=== PATIENT | male | born 1970 | race Two or more races ===

== ENCOUNTER 2017-11-12 03:56 | Inpatient (IN) | payer MEDICARE, OTHER ==
--- NOTE | 2017-11-12 05:25 | HP ---
COWS - Scale Resting Pulse: 0= [place] 80 or Below Sweatin=Flushed/Facial Moisture Restless Observation: 1= Difficult to Sit Still Pupil Size: 1= Pupils >than Normal Bone or Joint Aches: 2= Severe Diffuse Aches Runny Nose/ Eye Tearin= Runny Nose/Eyes GI Upset > 30mins: 3= Vomiting/Diarrhea (DIARRHEA X 2, VOMITING X 2) Tremor Observation: 2= Slight Tremor Visible Yawning Observation: 0= None Anxiety or Irritability: 2=Irritable/Anxious Goose Flesh Skin: 3=Piloerection COWS Score: 18 CIWA Score - CIWA Score Nausea/Vomitin (VOMITING X 2) Muscle Tremors: 4-Moderate,w/Arms Extend Anxiety: 3 Agitation: 3 Paroxysmal Sweats: 2 Orientation: 0-Oriented Tacttile Disturbances: 0-None Auditory Disturbances: 0-None Visual Disturbances: 0-None Headache: 0-None Present CIWA-Ar Total Score: 15 Admission ROS S - HPI Chief Complaint: Alcohol and opioid withdrawal symptoms Allergies/Adverse Reactions: Allergies Allergy/AdvReac Type Severity Reaction Status Date / Time acetaminophen [From Tylenol] Allergy Severe Difficulty Verified 11/12/17 05:24 Breathing History of Present Illness: 47 years old male with a long history of opoid and alcohol dependence is admitted to detox. Patient has been in previous detox and denies significant period of abstinence. He has medical history of asthma and DM. Denies suicidal ideation at this time. Exam Limitations: No Limitations - Ebola screening Have you traveled outside of the country in the last 21 days: No Have you had contact with anyone from an Ebola affected area: No Have you been sick,other than usual withdrawal symptoms: No Do you have a fever: No - Review of Systems Constitutional: Chills, Loss of Appetite, Night Sweats, Changes in sleep EENT: reports: No Symptoms Reported (yellow phlegm) Respiratory: reports: Cough Cardiac: reports: No Symptoms Reported GI: reports: Diarrhea, Nausea, Poor Appetite, Poor Fluid Intake, Vomiting, Abdominal cramping : reports: No Symptoms Reported Musculoskeletal: reports: Back Pain, Muscle Pain, Muscle Weakness Integumentary: reports: Flushing Neuro: reports: Tremors Endocrine: reports: No Symptoms Reported Hematology: reports: No Symptoms Reported Psychiatric: reports: Agitated, Anxious, Depressed Other Systems: Reviewed and Negative Patient History - Patient Medical History Hx Anemia: No Hx Asthma: Yes Hx Chronic Obstructive Pulmonary Disease (COPD): No Hx Cancer: No Hx Cardiac Disorders: No Hx Congestive Heart Failure: No Hx Hypertension: No Hx Hypercholesterolemia: No HX Cerebrovascular Accident: No Hx Seizures: No Hx Dementia: No Hx Diabetes: Yes Hx Gastrointestinal Disorders: No Hx Liver Disease: No Hx Genitourinary Disorders: No Hx Sexually Transmitted Disorders: No Hx Renal Disease (ESRD): No Hx Thyroid Disease: No Hx Human Immunodeficiency Virus (HIV): No (Negative 2017) Hx Hepatitis C: No (Negative 2017) Hx Depression: No Hx Suicide Attempt: No (Denies suicidal ideation) Hx Bipolar Disorder: No Hx Schizophrenia: No - Patient Surgical History Past Surgical History: No - PPD History Previous Implant?: Yes Documented Results: Negative w/o proof Implanted On Prior [facility] Admission?: No PPD to be Administered?: Yes - Reproductive History Patient is a Female of Child Bearing Age (11 -55 yrs old): No (MALE) - Smoking Cessation Smoking history: Current every day smoker Have you smoked in the past 12 months: Yes Aproximately how many cigarettes per day: 20 Hx Chewing Tobacco Use: No Initiated information on smoking cessation: Yes 'Breaking Loose' booklet given: 11/12/17 - Substance & Tx. History Hx Alcohol Use: Yes Hx Substance Use: Yes Substance Use Type: Alcohol, Cocaine, Heroin, Marijuana Hx Substance Use Treatment: Yes ([facility]) - Substances Abused Alcohol Route: Oral Frequency: Daily Amount used: BEER- 2x (40 OZ), LIQUOR 2 PINTS Age of first use: 36 Date of Last Use: 11/11/17 Heroin Route: Inhalation Frequency: Daily Amount used: 13 BAGS Age of first use: 20 Date of Last Use: 11/11/17 Cocaine Route: Smoking Frequency: Daily Amount used: 4 GRAMS Age of first use: 31 Date of Last Use: 11/11/17 Family Disease History - Family Disease History Family History: Denies Admission Physical Exam S - Physical General Appearance: Yes: Moderate Distress HEENTM: Yes: EOMI, Normal ENT Inspection, JESUS Respiratory: Yes: Lungs Clear, Normal Breath Sounds, No Respiratory Distress Neck: Yes: Supple Breast: Yes: Breast Exam Deferred Cardiology: Yes: Regular Rhythm, Regular Rate, S1, S2 Abdominal: Yes: Normal Bowel Sounds, Soft Genitourinary: Yes: Within Normal Limits Back: Yes: Normal Inspection Musculoskeletal: Yes: Back pain, Muscle Pain, Muscle weakness Extremities: Yes: Tremors Neurological: Yes: Alert, Normal Mood/Affect, Normal Response Integumentary: Yes: Dry Lymphatic: Yes: Within Normal Limits. No: Adenopathy, Tenderness, Other - Diagnostic (1) Alcohol dependence with uncomplicated withdrawal Current Visit: Yes Status: Chronic (2) Cocaine dependence, uncomplicated Current Visit: Yes Status: Acute (3) Diabetes Current Visit: Yes Status: Chronic Qualifiers: Diabetes mellitus type: type 2 (4) Asthma Current Visit: Yes Status: Chronic (5) Opioid dependence with withdrawal Current Visit: Yes Status: Chronic Cleared for Admission S - Detox or Rehab [facility] Level of Care: Medically Managed Detox Regimen/Protocol: Methadone/Librium S Breath Alcohol Content Breath Alcohol Content: 0
[2017-11-12] MEDS ORDERED: MAGNESIUM CITRATE 300 ML BOTTLE PO PRN (05:37)
[2017-11-12] MEDS ORDERED: NICOTINE POLACRILEX 2 MG GUM BC PRN (05:37)
[2017-11-12] MEDS ORDERED: METHADONE HCL 10 MG TABLET (FOR DETOX USE ONLY) PO ONE ×3 (05:37→23:00)
[2017-11-12] MEDS ORDERED: guaiFENesin/D-METHORPHAN HB 10 ML UNIT-DOSE CUPS PO PRN (05:37)
[2017-11-12] MEDS ORDERED: MAGNESIUM HYDROX 2400MG/30ML ORAL SUSPENSION 30 ML CUP PO PRN (05:37)
[2017-11-12] MEDS ORDERED: chlordiazePOXIDE HCL 25 MG CAPSULE PO PRN (05:37)
[2017-11-12] MEDS ORDERED: LOPERAMIDE HCL 2 MG CAPSULE PO PRN (05:37)
[2017-11-12] MEDS ORDERED: MENTHOL/PHENOL 1 EACH UD MM PRN (05:37)
[2017-11-12] MEDS ORDERED: MAG HYDROX/AL HYDROX/SIMETH 30 ML UNIT-DOSE CUP PO PRN (05:37)
[2017-11-12] MEDS ORDERED: P-EPHED 60MG/TRIPROLIDI 2.5MG TABLET PO PRN (05:37)
[2017-11-12 09:47] LABS: HEMATOCRIT 41.5 % (35.4-49); HEMOGLOBIN 13.6 GM/dL (11.7-16.9); MCH 32.4 pg (25.7-33.7); MCHC 32.7 g/dl (32.0-35.9); MEAN CELL VOLUME 99.3 fl (80-96); MEAN PLT VOLUME 9.5 fl (7.5-11.1); PLATELET COUNT 194 K/MM3 (134-434); RBC 4.18 M/mm3 (4.00-5.60); RDW 13.1 % (11.9-15.9); WHITE BLOOD COUNT 7.2 K/mm3 (4.0-10.0)
[2017-11-12 10:08] LABS: BLOOD UREA NITROGEN 16 mg/dL (7-18); CALCIUM 9.5 mg/dL (8.5-10.1); CHLORIDE 99 mmol/L (98-107); GLUCOSE,RANDOM 107 mg/dL (74-106); POTASSIUM 3.8 mmol/L (3.5-5.1); SODIUM 137 mmol/L (136-145)
[2017-11-12 10:11] LABS: ALK PHOS 74 U/L (45-117); ANION GAP 8 (8-16); BILIRUBIN,TOTAL 0.8 mg/dL (0.2-1.0); CO2 30 mmol/L (21-32); CREATININE 0.8 mg/dL (0.7-1.3); SGOT/AST 25 U/L (15-37); SGPT/ALT 27 U/L (12-78); TOT PROT 7.5 g/dl (6.4-8.2)
[2017-11-12] MEDS: PRENATAL VITAMINS W/ FOLIC ACID TABLET (FP) PO SCH (10:38)
[2017-11-12] MEDS: chlordiazePOXIDE HCL 25 MG CAPSULE PO SCH ×3 (10:38→22:20)
[2017-11-12] MEDS: NICOTINE 14 MG/24 HOURS TOPICAL PATCH TD SCH (10:39)
--- NOTE | 2017-11-12 12:38 | PN ---
[facility] CIWA - CIWA Score Nausea/Vomitin-No Nausea/No Vomiting Muscle Tremors: 3 Anxiety: 4-Mod. Anxious/Guarded Agitation: 3 Paroxysmal Sweats: 3 Orientation: 0-Oriented Tacttile Disturbances: 2-Mild Itch/Numbness/Burn Auditory Disturbances: 0-None Visual Disturbances: 3-Moderate Sensitivity Headache: 0-None Present CIWA-Ar Total Score: 18 BHS COWS - Scale Resting Pulse: 0= [place] 80 or Below Sweatin= Chills/Flushing Restless Observation: 1= Difficult to Sit Still Pupil Size: 0= Normal to Room Light Bone or Joint Aches: 2= Severe Diffuse Aches Runny Nose/ Eye Tearin= None GI Upset > 30mins: 0= None Tremor Observation of Outstretched Hands: 2= Slight Tremor Visible Yawning Observation: 2= >3x During Session Anxiety or Irritability: 2=Irritable/Anxious Goose Flesh Skin: 3=Piloerection COWS Score: 13 BHS Progress Note (SOAP) Subjective: Fatigue, Sweating, Interrupted Sleep, Anxious, Tremors. Objective: PT. A & O X 3. NO ACUTE DISTRESS. 11/12/17 12:37 Vital Signs Temperature 96.9 F L 11/12/17 09:07 Pulse Rate 75 11/12/17 09:07 Respiratory Rate 18 11/12/17 09:07 Blood Pressure 109/58 11/12/17 09:07 O2 Sat by Pulse Oximetry (%) Laboratory Tests 11/12/17 11/12/17 11/12/17 07:30 07:30 07:30 WBC 7.2 RBC 4.18 Hgb 13.6 Hct 41.5 MCV 99.3 H MCH 32.4 MCHC 32.7 RDW 13.1 Plt Count 194 MPV 9.5 Sodium 137 Potassium 3.8 Chloride 99 Carbon Dioxide 30 Anion Gap 8 BUN 16 Creatinine 0.8 Creat Clearance w eGFR > 60 Random Glucose 107 H Calcium 9.5 Total Bilirubin 0.8 AST 25 ALT 27 Alkaline Phosphatase 74 Total Protein 7.5 Albumin 4.0 RPR Titer Nonreactive LABS NOTED. UA RESULTS PENDING. 11/12/17 12:38 Assessment: 11/12/17 12:37 WITHDRAWAL SYMPTOMS. Plan: CONTINUE DETOX.
--- NOTE | 2017-11-12 13:27 | EKG ---
Test Reason : Blood Pressure : / mmHG Vent. Rate : 068 BPM Atrial Rate : 068 BPM P-R Int : 144 ms QRS Dur : 088 ms QT Int : 370 ms P-R-T Axes : 063 088 038 degrees QTc Int : 393 ms NORMAL SINUS RHYTHM NORMAL ECG NO PREVIOUS ECGS AVAILABLE Confirmed by GRICEL WYLIE MD ([id number]) on 11/12/2017 1:27:40 PM Referred By: Confirmed By:GRICEL WYLIE MD
[2017-11-12 14:41] LABS: SICKLE CELL SCREEN NEGATIVE (NEGATIVE)
[2017-11-12 19:02] LABS: URINE APPEARANCE CLEAR; URINE BILIRUBIN NEGATIVE (NEGATIVE); URINE BLOOD NEGATIVE (NEGATIVE); URINE COLOR DKYELLOW; URINE GLUCOSE (UA) NEGATIVE (NEGATIVE); URINE KETONE NEGATIVE (NEGATIVE); URINE LEUK ESTERASE TRACE (NEGATIVE); URINE NITRITE NEGATIVE (NEGATIVE); URINE PROTEIN NEGATIVE (NEGATIVE); URINE UROBILINOGEN 4.0 E.U/dl mg/dL (0.2-1.0)
[2017-11-12 20:29] LABS: EPI CELLS RARE /HPF (FEW); URINE MUCUS RARE
[2017-11-12] MEDS: THIAMINE HCL 100 MG TABLET (FP) PO SCH (22:20)
[2017-11-13] MEDS: chlordiazePOXIDE HCL 25 MG CAPSULE PO SCH ×4 (05:48→22:08)
[2017-11-13 05:55] VITALS: BMI 27.3
[2017-11-13] MEDS ORDERED: METHADONE HCL 10 MG TABLET (FOR DETOX USE ONLY) PO SCH (10:00)
[2017-11-13] MEDS: PRENATAL VITAMINS W/ FOLIC ACID TABLET (FP) PO SCH (10:27)
[2017-11-13] MEDS: NICOTINE 14 MG/24 HOURS TOPICAL PATCH TD SCH (10:27)
[2017-11-13] MEDS: BACITRACIN 0.9 GM PACKET TP SCH ×2 (11:53→22:08)
[2017-11-13] MEDS: MINERAL OIL/PETROLAT/WATER TOPICAL CREAM 113 GM JAR TP SCH ×2 (11:54→22:09)
--- NOTE | 2017-11-13 12:30 | PN ---
[facility] CIWA - CIWA Score Nausea/Vomitin-No Nausea/No Vomiting Muscle Tremors: None Anxiety: 4-Mod. Anxious/Guarded Agitation: 4-Moderately Restless Paroxysmal Sweats: 3 Orientation: 0-Oriented Tacttile Disturbances: 3-Moderate Itch/Numb/Burn Auditory Disturbances: 0-None Visual Disturbances: 2-Mild Sensitivity Headache: 0-None Present CIWA-Ar Total Score: 16 S COWS - Scale Resting Pulse: 0= [place] 80 or Below Sweatin= Chills/Flushing Restless Observation: 1= Difficult to Sit Still Pupil Size: 0= Normal to Room Light Bone or Joint Aches: 2= Severe Diffuse Aches Runny Nose/ Eye Tearin= None GI Upset > 30mins: 2= Nausea/Diarrhea Tremor Observation of Outstretched Hands: 0= None Yawning Observation: 1= 1-2x During Session Anxiety or Irritability: 2=Irritable/Anxious Goose Flesh Skin: 3=Piloerection COWS Score: 12 S Progress Note (SOAP) Subjective: Sweating, Anxious, Diarrhea, Body Aches. Objective: PT. A & O X 3, OBSERVED AMBULATING ON UNIT. NO ACUTE DISTRESS. 11/13/17 12:28 Vital Signs Temperature 98.2 F 11/13/17 08:49 Pulse Rate 71 11/13/17 08:49 Respiratory Rate 18 11/13/17 08:49 Blood Pressure 138/85 11/13/17 08:49 O2 Sat by Pulse Oximetry (%) Laboratory Tests 11/12/17 11/12/17 11/12/17 07:30 07:30 07:30 WBC 7.2 RBC 4.18 Hgb 13.6 Hct 41.5 MCV 99.3 H MCH 32.4 MCHC 32.7 RDW 13.1 Plt Count 194 MPV 9.5 Sickle Cell Screen Negative Sodium 137 Potassium 3.8 Chloride 99 Carbon Dioxide 30 Anion Gap 8 BUN 16 Creatinine 0.8 Creat Clearance w eGFR > 60 POC Glucometer Random Glucose 107 H Calcium 9.5 Total Bilirubin 0.8 AST 25 ALT 27 Alkaline Phosphatase 74 Total Protein 7.5 Albumin 4.0 Urine Color Urine Appearance Urine pH Ur Specific [place] Urine Protein Urine Glucose (UA) Urine Ketones Urine Blood Urine Nitrite Urine Bilirubin Urine Urobilinogen Ur Leukocyte Esterase Urine WBC (Auto) Urine RBC (Auto) Ur Epithelial Cells Urine Mucus RPR Titer Nonreactive 11/12/17 11/12/17 11/13/17 15:54 16:17 05:38 WBC RBC Hgb Hct MCV MCH MCHC RDW Plt Count MPV Sickle Cell Screen Sodium Potassium Chloride Carbon Dioxide Anion Gap BUN Creatinine Creat Clearance w eGFR POC Glucometer 78 93 Random Glucose Calcium Total Bilirubin AST ALT Alkaline Phosphatase Total Protein Albumin Urine Color Dkyellow Urine Appearance Clear Urine pH 6.0 Ur Specific [place] 1.031 Urine Protein Negative Urine Glucose (UA) Negative Urine Ketones Negative Urine Blood Negative Urine Nitrite Negative Urine Bilirubin Negative Urine Urobilinogen 4.0 e.u/dl Ur Leukocyte Esterase Negative Urine WBC (Auto) 2 Urine RBC (Auto) 1 Ur Epithelial Cells Rare Urine Mucus Rare RPR Titer LABS NOTED. Assessment: 11/13/17 12:28 WITHDRAWAL SYMPTOMS. Plan: CONTINUE DETOX. INCREASE DAILY PO FLUID INTAKE.
[2017-11-13] MEDS: IBUPROFEN 400 MG TABLET (FP) PO PRN (15:22)
[2017-11-13] MEDS: THIAMINE HCL 100 MG TABLET (FP) PO SCH (22:08)
[2017-11-14] MEDS: chlordiazePOXIDE HCL 25 MG CAPSULE PO SCH (05:42)
[2017-11-14] MEDS: PRENATAL VITAMINS W/ FOLIC ACID TABLET (FP) PO SCH (09:59)
[2017-11-14] MEDS: BACITRACIN 0.9 GM PACKET TP SCH ×2 (10:00→22:17)
[2017-11-14] MEDS: MINERAL OIL/PETROLAT/WATER TOPICAL CREAM 113 GM JAR TP SCH ×2 (10:00→22:19)
[2017-11-14] MEDS: METHADONE HCL 5 MG TABLET (FOR DETOX USE ONLY) PO SCH (10:00)
[2017-11-14] MEDS: NICOTINE 14 MG/24 HOURS TOPICAL PATCH TD SCH (10:00)
[2017-11-14] MEDS: chlordiazePOXIDE 5 MG CAPSULE PO SCH ×3 (10:01→22:20)
[2017-11-14] MEDS: IBUPROFEN 400 MG TABLET (FP) PO PRN ×2 (10:20→16:49)
--- NOTE | 2017-11-14 11:00 | PN ---
S Progress Note (SOAP) Subjective: ANXIETY,SWEATS IRRITABILITY,CONSTIPATED.DECLINED MOM AND CITRATE OF MG Objective: 11/14/17 10:59 Vital Signs Temperature 97.8 F 11/14/17 09:19 Pulse Rate 78 11/14/17 09:19 Respiratory Rate 18 11/14/17 09:19 Blood Pressure 116/71 11/14/17 09:19 O2 Sat by Pulse Oximetry (%) Laboratory Last Values WBC 7.2 K/mm3 (4.0-10.0) 11/12/17 07:30 RBC 4.18 M/mm3 (4.00-5.60) 11/12/17 07:30 Hgb 13.6 GM/dL (11.7-16.9) 11/12/17 07:30 Hct 41.5 % (35.4-49) 11/12/17 07:30 MCV 99.3 fl (80-96) H 11/12/17 07:30 MCH 32.4 pg (25.7-33.7) 11/12/17 07:30 MCHC 32.7 g/dl (32.0-35.9) 11/12/17 07:30 RDW 13.1 % (11.9-15.9) 11/12/17 07:30 Plt Count 194 K/MM3 (134-434) 11/12/17 07:30 MPV 9.5 fl (7.5-11.1) 11/12/17 07:30 Sickle Cell Screen Negative (NEGATIVE) 11/12/17 07:30 Sodium 137 mmol/L (136-145) 11/12/17 07:30 Potassium 3.8 mmol/L (3.5-5.1) 11/12/17 07:30 Chloride 99 mmol/L (98-107) 11/12/17 07:30 Carbon Dioxide 30 mmol/L (21-32) 11/12/17 07:30 Anion Gap 8 (8-16) 11/12/17 07:30 BUN 16 mg/dL (7-18) 11/12/17 07:30 Creatinine 0.8 mg/dL (0.7-1.3) 11/12/17 07:30 Creat Clearance w eGFR > 60 (>60) 11/12/17 07:30 POC Glucometer 112 UNITS (80-120) 11/14/17 05:40 Random Glucose 107 mg/dL (74-106) H 11/12/17 07:30 Calcium 9.5 mg/dL (8.5-10.1) 11/12/17 07:30 Total Bilirubin 0.8 mg/dL (0.2-1.0) 11/12/17 07:30 AST 25 U/L (15-37) 11/12/17 07:30 ALT 27 U/L (12-78) 11/12/17 07:30 Alkaline Phosphatase 74 U/L (45-117) 11/12/17 07:30 Total Protein 7.5 g/dl (6.4-8.2) 11/12/17 07:30 Albumin 4.0 g/dl (3.4-5.0) 11/12/17 07:30 Urine Color Dkyellow 11/12/17 15:54 Urine Appearance Clear 11/12/17 15:54 Urine pH 6.0 (5.0-8.0) 11/12/17 15:54 Ur Specific [place] 1.031 (1.001-1.035) 11/12/17 15:54 Urine Protein Negative (NEGATIVE) 11/12/17 15:54 Urine Glucose (UA) Negative (NEGATIVE) 11/12/17 15:54 Urine Ketones Negative (NEGATIVE) 11/12/17 15:54 Urine Blood Negative (NEGATIVE) 11/12/17 15:54 Urine Nitrite Negative (NEGATIVE) 11/12/17 15:54 Urine Bilirubin Negative (NEGATIVE) 11/12/17 15:54 Urine Urobilinogen 4.0 e.u/dl mg/dL (0.2-1.0) 11/12/17 15:54 Ur Leukocyte Esterase Negative (NEGATIVE) 11/12/17 15:54 Urine WBC (Auto) 2 /hpf (3-5) 11/12/17 15:54 Urine RBC (Auto) 1 /hpf (0-3) 11/12/17 15:54 Ur Epithelial Cells Rare /HPF (FEW) 11/12/17 15:54 Urine Mucus Rare 11/12/17 15:54 RPR Titer Nonreactive (NONREACTIVE) 11/12/17 07:30 Assessment: 11/14/17 10:59 WITHDRAWAL SX Plan: CONTINUE DETOX COLACE 100 MG PO TID
[2017-11-14] MEDS: THIAMINE HCL 100 MG TABLET (FP) PO SCH (22:17)
[2017-11-15] MEDS: chlordiazePOXIDE 5 MG CAPSULE PO SCH (05:53)
[2017-11-15] MEDS: PRENATAL VITAMINS W/ FOLIC ACID TABLET (FP) PO SCH (10:16)
[2017-11-15] MEDS: BACITRACIN 0.9 GM PACKET TP SCH ×2 (10:16→22:45)
[2017-11-15] MEDS: METHADONE HCL 5 MG TABLET (FOR DETOX USE ONLY) PO SCH (10:17)
[2017-11-15] MEDS: NICOTINE 14 MG/24 HOURS TOPICAL PATCH TD SCH (10:17)
[2017-11-15] MEDS: MINERAL OIL/PETROLAT/WATER TOPICAL CREAM 113 GM JAR TP SCH ×2 (10:17→22:47)
[2017-11-15] MEDS: chlordiazePOXIDE HCL 10 MG CAPSULE PO SCH ×3 (11:43→22:46)
--- NOTE | 2017-11-15 12:40 | PN ---
BHS Progress Note (SOAP) Subjective: Back pain, muscle aches, N/V, constipation,shakes and sweats Objective: 11/15/17 12:38 Vital Signs 11/15/17 11/15/17 06:14 09:39 Temperature 97.9 F 98.2 F Pulse Rate 68 73 Respiratory 18 18 Rate Blood Pressure 113/70 113/66 Laboratory Last Values WBC 7.2 K/mm3 (4.0-10.0) 11/12/17 07:30 RBC 4.18 M/mm3 (4.00-5.60) 11/12/17 07:30 Hgb 13.6 GM/dL (11.7-16.9) 11/12/17 07:30 Hct 41.5 % (35.4-49) 11/12/17 07:30 MCV 99.3 fl (80-96) H 11/12/17 07:30 MCH 32.4 pg (25.7-33.7) 11/12/17 07:30 MCHC 32.7 g/dl (32.0-35.9) 11/12/17 07:30 RDW 13.1 % (11.9-15.9) 11/12/17 07:30 Plt Count 194 K/MM3 (134-434) 11/12/17 07:30 MPV 9.5 fl (7.5-11.1) 11/12/17 07:30 Sickle Cell Screen Negative (NEGATIVE) 11/12/17 07:30 Sodium 137 mmol/L (136-145) 11/12/17 07:30 Potassium 3.8 mmol/L (3.5-5.1) 11/12/17 07:30 Chloride 99 mmol/L (98-107) 11/12/17 07:30 Carbon Dioxide 30 mmol/L (21-32) 11/12/17 07:30 Anion Gap 8 (8-16) 11/12/17 07:30 BUN 16 mg/dL (7-18) 11/12/17 07:30 Creatinine 0.8 mg/dL (0.7-1.3) 11/12/17 07:30 Creat Clearance w eGFR > 60 (>60) 11/12/17 07:30 POC Glucometer 105 UNITS (80-120) 11/15/17 05:56 Random Glucose 107 mg/dL (74-106) H 11/12/17 07:30 Calcium 9.5 mg/dL (8.5-10.1) 11/12/17 07:30 Total Bilirubin 0.8 mg/dL (0.2-1.0) 11/12/17 07:30 AST 25 U/L (15-37) 11/12/17 07:30 ALT 27 U/L (12-78) 11/12/17 07:30 Alkaline Phosphatase 74 U/L (45-117) 11/12/17 07:30 Total Protein 7.5 g/dl (6.4-8.2) 11/12/17 07:30 Albumin 4.0 g/dl (3.4-5.0) 11/12/17 07:30 Urine Color Dkyellow 11/12/17 15:54 Urine Appearance Clear 11/12/17 15:54 Urine pH 6.0 (5.0-8.0) 11/12/17 15:54 Ur Specific [place] 1.031 (1.001-1.035) 11/12/17 15:54 Urine Protein Negative (NEGATIVE) 11/12/17 15:54 Urine Glucose (UA) Negative (NEGATIVE) 11/12/17 15:54 Urine Ketones Negative (NEGATIVE) 11/12/17 15:54 Urine Blood Negative (NEGATIVE) 11/12/17 15:54 Urine Nitrite Negative (NEGATIVE) 11/12/17 15:54 Urine Bilirubin Negative (NEGATIVE) 11/12/17 15:54 Urine Urobilinogen 4.0 e.u/dl mg/dL (0.2-1.0) 11/12/17 15:54 Ur Leukocyte Esterase Negative (NEGATIVE) 11/12/17 15:54 Urine WBC (Auto) 2 /hpf (3-5) 11/12/17 15:54 Urine RBC (Auto) 1 /hpf (0-3) 11/12/17 15:54 Ur Epithelial Cells Rare /HPF (FEW) 11/12/17 15:54 Urine Mucus Rare 11/12/17 15:54 RPR Titer Nonreactive (NONREACTIVE) 11/12/17 07:30 Labs noted Assessment: 11/15/17 12:38 Withdrawal sx Back pain/muscle pain not responding to NSAID Plan: Continue detox Start Flexerill 10mg PO TID PRN
[2017-11-15] MEDS: CYCLOBENZAPRINE HCL 10 MG TABLET (FP) PO PRN ×2 (15:16→22:46)
[2017-11-15] MEDS: IBUPROFEN 400 MG TABLET (FP) PO PRN (16:50)
[2017-11-15] MEDS: THIAMINE HCL 100 MG TABLET (FP) PO SCH (22:46)
[2017-11-16] MEDS: chlordiazePOXIDE HCL 10 MG CAPSULE PO SCH (06:04)
[2017-11-16] MEDS: IBUPROFEN 400 MG TABLET (FP) PO PRN (06:07)
[2017-11-16] MEDS: CYCLOBENZAPRINE HCL 10 MG TABLET (FP) PO PRN ×3 (06:07→22:18)
[2017-11-16] MEDS ORDERED: METHADONE HCL 10 MG TABLET (FOR DETOX USE ONLY) PO SCH (10:00)
[2017-11-16] MEDS: PRENATAL VITAMINS W/ FOLIC ACID TABLET (FP) PO SCH (10:17)
[2017-11-16] MEDS: NICOTINE 14 MG/24 HOURS TOPICAL PATCH TD SCH (10:18)
[2017-11-16] MEDS: MINERAL OIL/PETROLAT/WATER TOPICAL CREAM 113 GM JAR TP SCH ×2 (10:18→22:19)
[2017-11-16] MEDS: BACITRACIN 0.9 GM PACKET TP SCH ×2 (10:18→22:18)
--- NOTE | 2017-11-16 15:14 | PN ---
BHS Progress Note (SOAP) Subjective: Sweating,interrupted sleep,restless Objective: 11/16/17 15:13 Vital Signs - 8 hr 11/16/17 11/16/17 09:50 14:29 Temperature 96.1 F L 97.2 F L Pulse Rate 72 89 Respiratory 18 18 Rate Blood Pressure 112/75 123/70 Laboratory Last Values WBC 7.2 K/mm3 (4.0-10.0) 11/12/17 07:30 RBC 4.18 M/mm3 (4.00-5.60) 11/12/17 07:30 Hgb 13.6 GM/dL (11.7-16.9) 11/12/17 07:30 Hct 41.5 % (35.4-49) 11/12/17 07:30 MCV 99.3 fl (80-96) H 11/12/17 07:30 MCH 32.4 pg (25.7-33.7) 11/12/17 07:30 MCHC 32.7 g/dl (32.0-35.9) 11/12/17 07:30 RDW 13.1 % (11.9-15.9) 11/12/17 07:30 Plt Count 194 K/MM3 (134-434) 11/12/17 07:30 MPV 9.5 fl (7.5-11.1) 11/12/17 07:30 Sickle Cell Screen Negative (NEGATIVE) 11/12/17 07:30 Sodium 137 mmol/L (136-145) 11/12/17 07:30 Potassium 3.8 mmol/L (3.5-5.1) 11/12/17 07:30 Chloride 99 mmol/L (98-107) 11/12/17 07:30 Carbon Dioxide 30 mmol/L (21-32) 11/12/17 07:30 Anion Gap 8 (8-16) 11/12/17 07:30 BUN 16 mg/dL (7-18) 11/12/17 07:30 Creatinine 0.8 mg/dL (0.7-1.3) 11/12/17 07:30 Creat Clearance w eGFR > 60 (>60) 11/12/17 07:30 POC Glucometer 99 UNITS (80-120) 11/15/17 16:25 Random Glucose 107 mg/dL (74-106) H 11/12/17 07:30 Calcium 9.5 mg/dL (8.5-10.1) 11/12/17 07:30 Total Bilirubin 0.8 mg/dL (0.2-1.0) 11/12/17 07:30 AST 25 U/L (15-37) 11/12/17 07:30 ALT 27 U/L (12-78) 11/12/17 07:30 Alkaline Phosphatase 74 U/L (45-117) 11/12/17 07:30 Total Protein 7.5 g/dl (6.4-8.2) 11/12/17 07:30 Albumin 4.0 g/dl (3.4-5.0) 11/12/17 07:30 Urine Color Dkyellow 11/12/17 15:54 Urine Appearance Clear 11/12/17 15:54 Urine pH 6.0 (5.0-8.0) 11/12/17 15:54 Ur Specific [place] 1.031 (1.001-1.035) 11/12/17 15:54 Urine Protein Negative (NEGATIVE) 11/12/17 15:54 Urine Glucose (UA) Negative (NEGATIVE) 11/12/17 15:54 Urine Ketones Negative (NEGATIVE) 11/12/17 15:54 Urine Blood Negative (NEGATIVE) 11/12/17 15:54 Urine Nitrite Negative (NEGATIVE) 11/12/17 15:54 Urine Bilirubin Negative (NEGATIVE) 11/12/17 15:54 Urine Urobilinogen 4.0 e.u/dl mg/dL (0.2-1.0) 11/12/17 15:54 Ur Leukocyte Esterase Negative (NEGATIVE) 11/12/17 15:54 Urine WBC (Auto) 2 /hpf (3-5) 11/12/17 15:54 Urine RBC (Auto) 1 /hpf (0-3) 11/12/17 15:54 Ur Epithelial Cells Rare /HPF (FEW) 11/12/17 15:54 Urine Mucus Rare 11/12/17 15:54 RPR Titer Nonreactive (NONREACTIVE) 11/12/17 07:30 labs noted Assessment: 11/16/17 15:13 Withdrawal sx. Plan: Continue detox
[2017-11-16] MEDS ORDERED: TOLNAFTATE 1% CREAM 15 GM TUBE TP SCH (22:00)
[2017-11-16] MEDS: THIAMINE HCL 100 MG TABLET (FP) PO SCH (22:18)
[2017-11-17 05:59] VITALS: BP 123/62; PULSE 66; TEMP 97.9
[2017-11-17] MEDS ORDERED: METHADONE HCL 5 MG TABLET (FOR DETOX USE ONLY) PO SCH (06:00)
[2017-11-17] MEDS: IBUPROFEN 400 MG TABLET (FP) PO PRN (06:14)
[2017-11-17] MEDS: CYCLOBENZAPRINE HCL 10 MG TABLET (FP) PO PRN (06:14)
--- NOTE | 2017-11-17 08:43 | DS ---
[facility] Detox Discharge Summary Admission Date: 11/12/17 Discharge Date: 11/17/17 - Physical Exam Results Vital Signs: Vital Signs Temperature 97.9 F 11/17/17 05:58 Pulse Rate 66 11/17/17 05:58 Respiratory Rate 18 11/17/17 05:58 Blood Pressure 123/62 11/17/17 05:58 O2 Sat by Pulse Oximetry (%) - Treatment Hospital Course: Detox Protocol Followed, Detoxed Safely, Responded well, Discharged Condition Good, Rehab Referral Accepted Patient has Accepted a Rehab Referral to: [facility] - Medication Discharge Medications: Ambulatory Orders Metformin HCl [Glucophage -] 500 mg PO DAILY 11/12/17 - Diagnosis (1) Alcohol dependence with uncomplicated withdrawal Current Visit: Yes Status: Acute (2) Cocaine dependence, uncomplicated Current Visit: Yes Status: Acute (3) Opioid dependence with withdrawal Current Visit: Yes Status: Acute (4) Asthma Current Visit: Yes Status: Chronic Qualifiers: Asthma severity: mild Asthma persistence: intermittent Asthma complication type: uncomplicated Qualified Code(s): J45.20 - Mild intermittent asthma, uncomplicated - AMA Did Patient Leave Against Medical Advice: No
== END 2017-11-17 09:00 | disposition home or self-care (01) | DRG 773 ==
LOC: YASAS 03:56 → Y3N 04:14
PROVIDERS: ADMIT Internal Medicine; ATTEND Internal Medicine
PROC: HZ2ZZZZ Detoxification Services for Substance Abuse Treatment (ICD-10-PCS; principal; 2017-11-12)
DX: F11.23 Opioid dependence with withdrawal (principal); F10.230 Alcohol dependence with withdrawal, uncomplicated; F14.20 Cocaine dependence, uncomplicated; J45.20 Mild intermittent asthma, uncomplicated; E11.9 Type 2 diabetes mellitus without complications; Z79.84 Long term (current) use of oral hypoglycemic drugs
CPT/HCPCS: 36415; 80053; 81003; 81015; 82962; 85027; 85660; 86593; 93005; 93010